=== PATIENT | male | born 1945 | race Native Hawaiian/Other Pacific Islander ===

== ENCOUNTER 2020-08-27 18:26 | Emergency (ER) | payer OTHER ==
[~2020-08-27] VITALS: Ht 180.3 cm; Wt 95.3 kg
[2020-08-27 19:35] VITALS: BP 169/73
[2020-08-27 19:55] VITALS: TEMP 98.4
== END 2020-08-27 19:55 | disposition home or self-care (01) ==
LOC: ED 18:26
DX: I10 Essential (primary) hypertension (principal)
CPT/HCPCS: 99281